=== PATIENT | female | born 1975 | race Caucasian/White ===

== ENCOUNTER 2021-09-18 15:31 | Outpatient (CLI) | payer BC, SELFPAY | END 2021-09-18 15:32 | disposition home or self-care (01) | PROVIDERS: PCP Nurse Practitioner Family; Visit Provider Physician Assistant Surgical | DX: T81.31XA Disruption of external operation (surgical) wound, not elsewhere classified, initial encounter (principal) | CPT/HCPCS: 97605 ==

== ENCOUNTER 2021-09-20 08:21 | Outpatient (CLI) | payer BC, SELFPAY | END 2021-09-20 08:22 | disposition home or self-care (01) | PROVIDERS: PCP Nurse Practitioner Family; Visit Provider Nurse Practitioner Family | DX: T81.31XA Disruption of external operation (surgical) wound, not elsewhere classified, initial encounter (principal); L03.311 Cellulitis of abdominal wall; E66.01 Morbid (severe) obesity due to excess calories; Z68.43 Body mass index [BMI] 50.0-59.9, adult; F17.210 Nicotine dependence, cigarettes, uncomplicated | CPT/HCPCS: 11042; 97605 ==

== ENCOUNTER 2021-09-24 15:12 | Outpatient (CLI) | payer BC, SELFPAY | END 2021-09-24 15:13 | disposition home or self-care (01) | LOC: WOUND 15:13 | PROVIDERS: PCP Nurse Practitioner Family; Visit Provider Nurse Practitioner Family | DX: T81.31XA Disruption of external operation (surgical) wound, not elsewhere classified, initial encounter (principal) | CPT/HCPCS: 97605 ==

== ENCOUNTER 2021-09-27 08:29 | Outpatient (CLI) | payer BC, SELFPAY | END 2021-09-27 08:30 | disposition home or self-care (01) | LOC: WOUND 08:30 | PROVIDERS: PCP Nurse Practitioner Family; Visit Provider Physician Assistant Surgical | DX: T81.31XA Disruption of external operation (surgical) wound, not elsewhere classified, initial encounter (principal); L03.311 Cellulitis of abdominal wall | CPT/HCPCS: 11043 ==

== ENCOUNTER 2021-10-01 15:14 | Outpatient (CLI) | payer BC, SELFPAY | END 2021-10-01 15:15 | disposition home or self-care (01) | LOC: WOUND 15:14 | PROVIDERS: PCP Nurse Practitioner Family; Visit Provider Physician Assistant Surgical | DX: T81.32XA Disruption of internal operation (surgical) wound, not elsewhere classified, initial encounter (principal) | CPT/HCPCS: 97605 ==

== ENCOUNTER 2021-10-02 15:08 | Outpatient (CLI) | payer BC, SELFPAY | END 2021-10-02 15:09 | disposition home or self-care (01) | LOC: WOUND 15:08 | PROVIDERS: PCP Nurse Practitioner Family; Visit Provider Physician Assistant Surgical | DX: T81.32XA Disruption of internal operation (surgical) wound, not elsewhere classified, initial encounter (principal) | CPT/HCPCS: 97605 ==

== ENCOUNTER 2021-10-04 08:09 | Outpatient (CLI) | payer BC, SELFPAY | END 2021-10-04 08:10 | disposition home or self-care (01) | LOC: WOUND 08:09 | PROVIDERS: PCP Nurse Practitioner Family; Visit Provider Physician Assistant Surgical | DX: T81.32XA Disruption of internal operation (surgical) wound, not elsewhere classified, initial encounter (principal); E66.01 Morbid (severe) obesity due to excess calories; F17.200 Nicotine dependence, unspecified, uncomplicated; Z68.43 Body mass index [BMI] 50.0-59.9, adult | CPT/HCPCS: 11043 ==

== ENCOUNTER 2021-10-11 08:14 | Outpatient (CLI) | payer BC, SELFPAY | END 2021-10-11 08:15 | disposition home or self-care (01) | LOC: WOUND 08:14 | PROVIDERS: PCP Nurse Practitioner Family; Visit Provider Physician Assistant Surgical | DX: T81.32XA Disruption of internal operation (surgical) wound, not elsewhere classified, initial encounter (principal); L03.311 Cellulitis of abdominal wall | CPT/HCPCS: 11043 ==

== ENCOUNTER 2021-10-17 14:50 | Outpatient (CLI) | payer BC, SELFPAY | END 2021-10-17 14:51 | disposition home or self-care (01) | LOC: WOUND 14:50 | PROVIDERS: PCP Nurse Practitioner Family; Visit Provider Nurse Practitioner Family | DX: T81.32XA Disruption of internal operation (surgical) wound, not elsewhere classified, initial encounter (principal); L03.311 Cellulitis of abdominal wall | CPT/HCPCS: 11042 ==

== ENCOUNTER 2021-10-25 08:15 | Outpatient (CLI) | payer BC, SELFPAY | END 2021-10-25 08:16 | disposition home or self-care (01) | PROVIDERS: PCP Nurse Practitioner Family; Visit Provider Physician Assistant Surgical | DX: T81.32XA Disruption of internal operation (surgical) wound, not elsewhere classified, initial encounter (principal); L03.311 Cellulitis of abdominal wall; E66.01 Morbid (severe) obesity due to excess calories; Z68.43 Body mass index [BMI] 50.0-59.9, adult | CPT/HCPCS: 11043 ==

== ENCOUNTER 2021-11-01 08:08 | Outpatient (CLI) | payer BC, SELFPAY | END 2021-11-01 08:09 | disposition home or self-care (01) | LOC: WOUND 08:08 | PROVIDERS: PCP Nurse Practitioner Family; Visit Provider Physician Assistant Surgical | DX: T81.32XA Disruption of internal operation (surgical) wound, not elsewhere classified, initial encounter (principal); L03.311 Cellulitis of abdominal wall | CPT/HCPCS: 11043 ==

== ENCOUNTER 2021-11-08 08:11 | Outpatient (CLI) | payer BC, SELFPAY | END 2021-11-08 08:12 | disposition home or self-care (01) | LOC: WOUND 08:11 | PROVIDERS: PCP Nurse Practitioner Family; Visit Provider Physician Assistant Surgical | DX: T81.32XA Disruption of internal operation (surgical) wound, not elsewhere classified, initial encounter (principal); L03.311 Cellulitis of abdominal wall | CPT/HCPCS: 11043 ==

== ENCOUNTER 2021-11-15 08:10 | Outpatient (CLI) | payer BC, SELFPAY | END 2021-11-15 08:11 | disposition home or self-care (01) | PROVIDERS: PCP Nurse Practitioner Family; Visit Provider Physician Assistant Surgical | DX: L03.311 Cellulitis of abdominal wall (principal); T81.32XA Disruption of internal operation (surgical) wound, not elsewhere classified, initial encounter | CPT/HCPCS: 11043 ==

== ENCOUNTER 2021-11-22 08:05 | Outpatient (CLI) | payer BC, SELFPAY | END 2021-11-22 08:06 | disposition home or self-care (01) | PROVIDERS: PCP Nurse Practitioner Family; Visit Provider Physician Assistant Surgical | DX: L03.311 Cellulitis of abdominal wall (principal); T81.32XA Disruption of internal operation (surgical) wound, not elsewhere classified, initial encounter | CPT/HCPCS: 97597 ==

== ENCOUNTER 2021-11-29 08:09 | Outpatient (CLI) | payer BC, SELFPAY | END 2021-11-29 08:10 | disposition home or self-care (01) | PROVIDERS: PCP Nurse Practitioner Family; Visit Provider Physician Assistant Surgical | DX: L03.311 Cellulitis of abdominal wall (principal); T81.32XA Disruption of internal operation (surgical) wound, not elsewhere classified, initial encounter | CPT/HCPCS: 11042 ==

== ENCOUNTER 2021-12-06 08:11 | Outpatient (CLI) | payer BC, SELFPAY | END 2021-12-06 08:12 | disposition home or self-care (01) | LOC: WOUND 08:12 | PROVIDERS: PCP Nurse Practitioner Family; Visit Provider Physician Assistant Surgical | DX: T81.32XA Disruption of internal operation (surgical) wound, not elsewhere classified, initial encounter (principal); L03.311 Cellulitis of abdominal wall | CPT/HCPCS: 11042 ==

== ENCOUNTER 2021-12-13 08:17 | Outpatient (CLI) | payer BC, SELFPAY | END 2021-12-13 08:18 | disposition home or self-care (01) | LOC: WOUND 08:17 | PROVIDERS: PCP Nurse Practitioner Family; Visit Provider Physician Assistant Surgical | DX: L03.311 Cellulitis of abdominal wall (principal); T81.32XA Disruption of internal operation (surgical) wound, not elsewhere classified, initial encounter | CPT/HCPCS: 11042 ==

== ENCOUNTER 2021-12-20 08:26 | Outpatient (CLI) | payer BC, SELFPAY | END 2021-12-20 08:27 | disposition home or self-care (01) | LOC: WOUND 08:26 | PROVIDERS: PCP Nurse Practitioner Family; Visit Provider Physician Assistant Surgical | DX: L03.311 Cellulitis of abdominal wall (principal); T81.32XA Disruption of internal operation (surgical) wound, not elsewhere classified, initial encounter | CPT/HCPCS: 11042 ==

== ENCOUNTER 2022-01-03 08:18 | Outpatient (CLI) | payer BC, SELFPAY | END 2022-01-03 08:19 | disposition home or self-care (01) | LOC: WOUND 08:18 | PROVIDERS: PCP Nurse Practitioner Family; Visit Provider Physician Assistant Surgical | DX: T81.32XA Disruption of internal operation (surgical) wound, not elsewhere classified, initial encounter (principal) | CPT/HCPCS: 99212 ==

== ENCOUNTER 2022-11-07 08:47 | Outpatient (CLI) | payer BC, SELFPAY | END 2022-11-07 08:48 | disposition home or self-care (01) | PROVIDERS: PCP Nurse Practitioner Family; Visit Provider Nurse Practitioner Family | DX: I10 Essential (primary) hypertension (principal); Z13.6 Encounter for screening for cardiovascular disorders | CPT/HCPCS: 80053; 80061 ==

== ENCOUNTER 2023-02-06 14:28 | Outpatient (CLI) | payer BC, SELFPAY ==
--- NOTE | 2023-02-06 14:40 | CRLHL7_ITS ---
For Patients: As a result of the Century Cures Act, medical imaging exams and procedure reports are released immediately into your electronic medical record. You may view this report before your referring provider. If you have questions, please contact your health care provider. BILATERAL SCREENING MAMMOGRAM WITH COMPUTER-AIDED DETECTION TECHNIQUE: CC and MLO views were obtained. These mammographic images have been obtained using full-field digital technique. These mammographic images were interpreted with the benefit of computer-aided detection. COMPARISON FILM: 04/08/21. FINDINGS: The breasts are almost entirely fatty IMPRESSION: There is no radiographic evidence for malignancy. ASSESSMENT: BI-RADS Category 1: Negative RECOMMENDATION: Routine screening mammogram in 1 year. A lay language report of this examination will be provided to the patient. Jevon Mendez M.D. Diagnostic Radiologist [email or web address] Transcribed: 12:59 p.[email or web address] akbar/Dictated by: Jevon Mendez MD @ 02/09/2023 9:26:00 AM (Electronically Signed)
== END 2023-02-06 14:29 | disposition home or self-care (01) ==
LOC: MAMMO 14:29
PROVIDERS: PCP Nurse Practitioner Family; Visit Provider Nurse Practitioner Family
DX: Z12.31 Encounter for screening mammogram for malignant neoplasm of breast (principal)
CPT/HCPCS: 77067

== ENCOUNTER 2024-03-11 10:47 | Outpatient (CLI) | payer OTHER, SELFPAY | END 2024-03-11 10:48 | disposition home or self-care (01) | PROVIDERS: PCP Nurse Practitioner Family; Visit Provider Nurse Practitioner Family | DX: I10 Essential (primary) hypertension (principal); E66.01 Morbid (severe) obesity due to excess calories; N93.8 Other specified abnormal uterine and vaginal bleeding; F17.210 Nicotine dependence, cigarettes, uncomplicated; Z13.0 Encounter for screening for diseases of the blood and blood-forming organs and certain disorders involving the immune mechanism; Z13.6 Encounter for screening for cardiovascular disorders | CPT/HCPCS: 80053; 80061; 84443; 85025 ==

== ENCOUNTER 2024-06-03 09:52 | Outpatient (CLI) | payer OTHER, SELFPAY ==
--- NOTE | 2024-06-03 10:15 | CRLHL7_ITS ---
For Patients: As a result of the Century Cures Act, medical imaging exams and procedure reports are released immediately into your electronic medical record. You may view this report before your referring provider. If you have questions, please contact your health care provider. BILATERAL SCREENING MAMMOGRAM WITH COMPUTER-AIDED DETECTION AND TOMOSYNTHESIS TECHNIQUE: CC and MLO views were obtained. These mammographic images have been obtained using full-field digital technique. These mammographic images were interpreted with the benefit of computer-aided detection. Breast Tomosynthesis was used in this interpretation. COMPARISON FILM: 02/06/23, 04/08/21. FINDINGS: There are scattered areas of fibroglandular density. IMPRESSION: There is no radiographic evidence for malignancy. ASSESSMENT: BI-RADS Category 1: Negative RECOMMENDATION: Routine screening mammogram in 1 year. A lay language report of this examination will be provided to the patient. Jevon Mendez M.D. Diagnostic Radiologist [email or web address] SP/Dictated by: Jevon Mendez MD @ 06/06/2024 8:42:00 AM (Electronically Signed)
== END 2024-06-03 09:53 | disposition home or self-care (01) ==
LOC: MAMMO 09:52
PROVIDERS: PCP Nurse Practitioner Family; Visit Provider Nurse Practitioner Family
DX: Z12.31 Encounter for screening mammogram for malignant neoplasm of breast (principal)
CPT/HCPCS: 77063; 77067

== ENCOUNTER 2024-06-30 11:35 | Outpatient (CLI) | payer OTHER, SELFPAY ==
--- NOTE | 2024-06-30 13:14 | P.ANES_ITS ---
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
--- NOTE | 2024-06-30 13:14 | W.ANESCHARGE ---
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
== END 2024-06-30 11:36 | disposition home or self-care (01) ==
LOC: OP CLINIC 11:35
PROVIDERS: PCP Nurse Practitioner Family; Visit Provider Surgery
DX: Z12.11 Encounter for screening for malignant neoplasm of colon (principal); D12.0 Benign neoplasm of cecum; D12.3 Benign neoplasm of transverse colon; D12.5 Benign neoplasm of sigmoid colon; D12.7 Benign neoplasm of rectosigmoid junction; D12.8 Benign neoplasm of rectum; K57.30 Diverticulosis of large intestine without perforation or abscess without bleeding; K64.4 Residual hemorrhoidal skin tags
CPT/HCPCS: 00811; 45385; 88305; J2704

== ENCOUNTER 2024-08-05 14:59 | Outpatient (CLI) | payer OTHER, SELFPAY ==
--- NOTE | 2024-08-05 15:30 | CRLHL7_ITS ---
For Patients: As a result of the Century Cures Act, medical imaging exams and procedure reports are released immediately into your electronic medical record. You may view this report before your referring provider. If you have questions, please contact your health care provider. INDICATION: Radiculopathy. COMPARISON: 07/28/2024. TECHNIQUE: Sagittal T1, T2, and STIR sequences. Axial T1 and T2 weighted sequences. FINDINGS: Normal vertebral body alignment. No fractures. No vertebral body loss of height. No spondylolisthesis. No ligamentous injury. No suspicious osseous lesions. Normal conus terminates at L1. Marrow edema of the articular processes of the bilateral L4-5 facet joints which may be secondary to stress reaction or inflammation from facet arthritis. T11-12: Disc degeneration posted disc bulge. Mild narrowing of spinal canal. No neural foraminal narrowing. T12-L1: No spinal canal neural foraminal narrowing. L1-2: Disc degeneration posterior disc bulge. No narrowing of the spinal canal. No neural foraminal narrowing. L2-3: No spinal canal or neural foraminal narrowing. L3-4: Disc degeneration and posterior disc bulge. No narrowing of spinal canal. No neural foraminal narrowing. Mild facet arthropathy. L4-5: Disc degeneration and posterior disc bulge. There is a superimposed peridiscal cyst or degenerated disc extrusion along the right paracentral zone measuring 11 mm in diameter with 16 mm of caudal migration. At the level interspace, there is moderate to severe narrowing of spinal canal. Impingement of the traversing right L5 nerve root. Facet arthropathy results in mild to moderate narrowing of bilateral foramina. Moderate facet arthropathy. Left facet joint effusion. L5-S1: Disc degeneration and loss disc height. Diffuse disc bulge. No narrowing of spinal canal. No impingement of the traversing S1 nerve roots. Mild to moderate narrowing of bilateral foramina. Moderate facet arthropathy. Degenerative changes of the SI joints. IMPRESSION: 1. Normal alignment. No fractures 2. Lumbar spondylosis 3. Marrow edema of the articular processes of the bilateral L4-5 facet joint which may be secondary to stress reaction or inflammation 4. At L4-5, posterior disc bulge. Superimposed right paracentral disc extrusion with caudal migration or peridiscal cyst. Moderate to severe narrowing of the spinal canal. Impingement of the traversing right L5 nerve root. Duts-sk-lhohrgbl narrowing of the bilateral neural foramina 5. At L5-S1, [id number] narrowing of the bilateral neural foramina Dictated by Carlos Brewer MD @ 08/06/2024 8:27:19 AM (Electronically Signed)
== END 2024-08-05 15:00 | disposition home or self-care (01) ==
LOC: MRI 15:00
PROVIDERS: PCP Nurse Practitioner Family; Visit Provider Nurse Practitioner Family
DX: M54.16 Radiculopathy, lumbar region (principal); M51.24 Other intervertebral disc displacement, thoracic region; M51.26 Other intervertebral disc displacement, lumbar region; M51.369 Other intervertebral disc degeneration, lumbar region without mention of lumbar back pain or lower extremity pain; M51.379 Other intervertebral disc degeneration, lumbosacral region without mention of lumbar back pain or lower extremity pain
CPT/HCPCS: 72148

== ENCOUNTER 2024-08-12 13:24 | Outpatient (CLI) | payer OTHER, SELFPAY | END 2024-08-12 13:25 | disposition home or self-care (01) | LOC: INJ CL 13:25 | PROVIDERS: PCP Nurse Practitioner Family; Visit Provider Family Medicine | DX: M54.16 Radiculopathy, lumbar region (principal); M51.26 Other intervertebral disc displacement, lumbar region | CPT/HCPCS: 64483; J1100; Q9966 ==